=== PATIENT | male | born 1950 | race Caucasian/White ===

== ENCOUNTER 2017-05-14 10:26 | Emergency (ER) | payer BC ==
[2017-05-14 10:34] VITALS: BP 143/100
--- NOTE | 2017-05-14 11:31 | UC ---
Ronald Macias Aidan, scribed for Neftaly Galeana MD on 05/14/17 at 1116 . Eye Complaint HPI - HPI Summary HPI Summary: 66 y/o male presents to the Urgent Care with a complaint of acute, constant, [id number] left eye redness with mild (2/10) associated pain that began several days ago. The patient claims that it feels like he has a stye. Associated symptoms include bags under the eyes bilaterally. Hx of HTN. He denies any sensation of a foreign body in his eye. - History of Current Complaint Chief Complaint: UCEye Stated Complaint: EYE ISSUE Time Seen by Provider: 05/14/17 11:04 Hx Obtained From: Patient Onset/Duration: Sudden Onset, Lasting Days, Still Present Timing: Constant Severity Initially: Moderate - moderate redness Severity Currently: Mild - mild pain, [id number] redness Pain Intensity: 2 Pain Scale Used: 0-10 Numeric Location of Injury: Sclera Character: Sharp Aggravating Factor(s): Other - unknown Alleviating Factor(s): Other - unknown Associated Signs And Symptoms: Negative: Negative - eye redness with pain - Allergies/Home Medications Allergies/Adverse Reactions: Allergies Allergy/AdvReac Type Severity Reaction Status Date / Time No Known Allergies Allergy Verified 09/14/16 13:26 PMH/Surg Hx/FS Hx/Imm Hx Cardiovascular History: Hypertension - Surgical History Surgical History: Yes Surgery Procedure, Year, and Place: prostate biopsy- benign. prostectomy - Family History Known Family History: Positive: Other - breast CA (sister and mother), prostate CA (uncle) - Social History Occupation: Employed Full-time Lives: With Family Alcohol Use: Weekly Substance Use Type: None Smoking Status (MU): Never Smoked Tobacco - Immunization History Most Recent Influenza Vaccination: never Most Recent Tetanus Shot: up to date Most Recent Pneumonia Vaccination: never Review of Systems Constitutional: Negative Skin: Negative Eyes: Other - left eye pain, left eye stye, left eye redness ENT: Negative Respiratory: Negative Cardiovascular: Negative Gastrointestinal: Negative Genitourinary: Negative Motor: Negative Neurovascular: Negative Musculoskeletal: Negative Neurological: Negative Psychological: Negative All Other Systems Reviewed And Are Negative: Yes Physical Exam Triage Information Reviewed: Yes Appearance: Well-Appearing, No Pain Distress Vital Signs: Initial Vital Signs Temp 97.8 F 05/14/17 10:31 Pulse 98 05/14/17 10:31 Resp 18 05/14/17 10:31 BP 143/100 05/14/17 10:31 Pulse Ox 99 05/14/17 10:31 Vital Signs Reviewed: Yes Eye Exam: Normal Eyes: Positive: Other: - EOMI, PERRL, No sclera injection, no hyphema or signs of trauma, left lower eyelid laterally along the eyelashes has a swollen erythematous area with no drainage ENT Exam: Normal ENT: Positive: Normal ENT inspection Neck exam: Normal Neck: Positive: Supple, Nontender Respiratory Exam: Normal Respiratory: Positive: Lungs clear - CTA, Other: - breath sounds present Cardiovascular Exam: Normal Cardiovascular: Positive: RRR Abdominal Exam: Normal Abdomen Description: Positive: Nontender, Soft Bowel Sounds: Positive: Present Musculoskeletal Exam: Normal Musculoskeletal: Positive: Strength Intact, ROM Intact Neurological Exam: Normal Neurological: Positive: Alert Psychological Exam: Normal Psychological: Positive: Age Appropriate Behavior Skin Exam: Normal Eye Complaint Course/Dx - Course Course Of Treatment: 66 y/o male presents with a stye in the left eye with mild associated pain and redness. MEDICATIONS REVIEWED AND DISCUSSED. - Differential Dx/Diagnosis Provider Diagnoses: LEFT LOWER EYE LID STYE Discharge - Discharge Plan Condition: Stable Disposition: HOME Prescriptions: Tobramycin 0.3% OPHTH.STACY* 1 drop LEFT EYE Q4H #1 btl Patient Education Materials: Lawanda (ED) Referrals: Hugh Sen MD [Primary Care Provider] - Additional Instructions: FOLLOW UP WITH YOUR DOCTOR. GET EVALUATED FOR ANY WORSENING OF YOUR CONDITION OR QUESTIONS OR CONCERNS. The documentation as recorded by the Ronald bolaños Aidan accurately reflects the service I personally performed and the decisions made by , Neftaly Galeana MD.
== END 2017-05-14 11:27 | disposition home or self-care (01) ==
LOC: UCEAST 10:26
DX: H00.015 Hordeolum externum left lower eyelid (principal); I10 Essential (primary) hypertension
CPT/HCPCS: 99212; G0463

== ENCOUNTER 2018-07-16 14:38 | Emergency (ER) | payer BC ==
[2018-07-16 14:48] VITALS: BP 169/122
--- NOTE | 2018-07-16 15:33 | UC ---
Ear Complaint HPI - HPI Summary HPI Summary: 67 year old male presents with 1 week history of decreased hearing to his right ear. States he was recently seen by his PCP and it was noted that he had a lot of wax in that ear. Approximately 1 week ago he noticed significant decrease in hearing after swimming. He used OTC cerumenlytic and attepted to flush without improvement. Denies ear pain, drainage, URI symptoms, dizziness, vertigo, or tinnitus. - History of Current Complaint Chief Complaint: UCEar Stated Complaint: CLOGGED EAR Time Seen by Provider: 07/16/18 14:53 Hx Obtained From: Patient Onset/Duration: Gradual Onset Pain Intensity: 0 Aggravating Factors: Nothing Alleviating Factors: Nothing Associated Signs/Symptoms: Negative: Discharge, Foreign Body Sensation, Swelling @ - Allergies/Home Medications Allergies/Adverse Reactions: Allergies Allergy/AdvReac Type Severity Reaction Status Date / Time No Known Allergies Allergy Verified 07/16/18 14:49 PMH/Surg Hx/FS Hx/Imm Hx Previously Healthy: Yes Endocrine History: Dyslipidemia Cardiovascular History: Cardiac Disease, Hypertension - Surgical History Surgical History: Yes Surgery Procedure, Year, and Place: prostate biopsy- benign, 04/2016. prostectomy 08/2016 - Family History Known Family History: Positive: Other - breast CA (sister and mother), prostate CA (uncle) - Social History Occupation: Employed Full-time Lives: With Family Alcohol Use: Occasionally Alcohol Amount: 10 per week Substance Use Type: None Smoking Status (MU): Never Smoked Tobacco Have You Smoked in the Last Year: No - Immunization History Most Recent Influenza Vaccination: never Most Recent Tetanus Shot: up to date Most Recent Pneumonia Vaccination: never Review of Systems Constitutional: Negative Skin: Negative Eyes: Negative ENT: Other - See HPI. Respiratory: Negative Is Patient Immunocompromised?: No All Other Systems Reviewed And Are Negative: Yes Physical Exam Triage Information Reviewed: Yes Appearance: Well-Appearing, No Pain Distress, Well-Nourished Vital Signs: Initial Vital Signs Temp 98.7 F 07/16/18 14:45 Pulse 94 07/16/18 14:45 Resp 18 07/16/18 14:45 BP 169/122 07/16/18 14:45 Pulse Ox 97 07/16/18 14:45 Vital Signs Reviewed: Yes Eyes: Positive: Conjunctiva Clear. Negative: Discharge ENT: Positive: Uvula midline, Other - Cerumen impaction right ear canal. Unable to visualize TM. Moderate amount of cerumen noted in left ear canal but TM visualized, intact, opaque, with good cone of light.. Negative: Pharyngeal erythema, Nasal congestion, Nasal drainage, Tonsillar swelling, Tonsillar exudate Neck: Positive: Supple, Nontender, No Lymphadenopathy Respiratory: Positive: No respiratory distress Neurological: Positive: Alert Skin Exam: Normal Re-Evaluation - Re-Evaluation First Eval Re-Evaluation Time: 15:20 Change: Improved Comment: Post-irrigation evaluation right ear. Patient reports hearing improved. External auditory ear canal free of cerumen. Mild erythema and excoriation noted to canal. TM intact, opaque, with good cone of light. Ear Complaint Course/Dx - Course Course Of Treatment: 67 year old male with decreased hearing to right ear secondary to cerumen impaction. Cerumen was successfully removed by irrigation. Post-irrigation revealed normal TM with some mild erythema and excoriation of the external auditory canal. Will treat with hydrocortisone and acetic acid otic drops QID x 7 days. Patient to follow up with PCP in 2 weeks as previously scheduled. - Differential Dx/Diagnosis Provider Diagnoses: Right cerumen impaction Discharge - Sign-Out/Discharge Documenting (check all that apply): Patient Departure All imaging exams completed and their final reports reviewed: No Studies - Discharge Plan Condition: Stable Disposition: HOME Prescriptions: Hydrocortisone/Acetic Acid [Hydrocortison-Acetic Acid Soln] 5 drop OT QID #1 bottle Patient Education Materials: Cerumen Impaction (ED) Referrals: Hugh Sen MD [Primary Care Provider] - 2 Weeks (As scheduled for follow-up of your blood pressure.) Additional Instructions: Use the hydrocortisoneacetic acid otic prescribed to you. Instill 5 drops in the right ear 4 times a day for 7 days. Your blood pressure was very elevated in the clinic today. It's very important that she keep your appointment with your primary care provider in 2 weeks for reevaluation of her blood pressure. Seek immediate medical attention in the emergency room if you develop any sudden severe headache, changes in your physician, become weak, dizzy, or lose consciousness, have chest pain or shortness of breath. - Billing Disposition and Condition Condition: STABLE Disposition: Home
== END 2018-07-16 15:45 | disposition home or self-care (01) ==
LOC: UCEAST 14:38
DX: H61.21 Impacted cerumen, right ear (principal)
CPT/HCPCS: 99213; G0463